=== PATIENT | male | born 1970 | race Caucasian/White ===

== ENCOUNTER 2018-04-14 10:52 | Emergency (ER) | payer OTHER ==
[~2018-04-14] VITALS: Ht 188 cm; Wt 95.3 kg
--- NOTE | 2018-04-14 11:15 | NUR ---
ONEIDA MAGUIRE IN DURING TRIAGE TO EVAL PT.
--- NOTE | 2018-04-14 12:07 | Diagnostic Imaging Report ---
CT BRAIN WO HISTORY: Fall COMPARISON: None. TECHNIQUE: Noncontrast axial scans were obtained from skull base to the vertex. Coronal and sagittal reconstructions obtained from the axial data. One or more of the following dose reduction techniques were used: Automated exposure control, adjustment of the mA and/or kV according to patient size, and/or utilization of iterative reconstruction technique. DISCUSSION: Scalp/Skull: Unremarkable. Brain sulci: Appropriate for patient's age. Ventricles: Normal in size and configuration. No hydrocephalus. Extra-axial spaces: No masses or fluid collections. Parenchyma: No abnormal densities. No mass, hemorrhage, or large vascular territory acute infarct. Dural sinuses: No abnormal densities. Sellar/Suprasellar region: Intact. Skull base: Intact. Incidental findings: None. IMPRESSION: No intracranial abnormalities. Signed by: Dr. Ashvin Vazquez M.D. on 04/14/2018 12:04 PM
[2018-04-14 13:18] VITALS: BP 145/102
[2018-04-14] MEDS ORDERED: ONDANSETRON HCL 4 MG ORAL DISINTEGRATING TAB PO ONE (19:45)
[2018-04-14] MEDS ORDERED: HYDROMORPHONE 2MG/ML 2 MG/ML ML IM ONE (19:45)
== END 2018-04-14 13:10 | disposition home or self-care (01) ==
LOC: ER 10:52
DX: R55 Syncope and collapse (principal); I10 Essential (primary) hypertension
CPT/HCPCS: 70450; 99283; J1170; Q0162